=== PATIENT | male | born 1960 | race Caucasian/White ===

== ENCOUNTER 2021-07-12 17:23 | Emergency (ER) | payer MEDICAID ==
[~2021-07-12] VITALS: Ht 160 cm; Wt 80.0 kg
[2021-07-12] MEDS ORDERED: HYDROCODONE/ACETAMINOPHEN 5/325MG TABLET PO ONE (17:30)
[2021-07-12 18:26] LABS: BASOPHILS % 0.4 % (0.0-2.0); HEMATOCRIT. 47.8 % (42.0-52.0); LYMPHOCYTES % 11.1 % (20.0-50.0); MEAN CORPUSCULAR VOLUME 92.6 fL (80.0-94.0); MEAN PLATELET VOLUME 10.7 fl (7.4-10.4); MONOCYTES % 6.3 % (2.0-8.0); NEUTROPHILS % 81.2 % (40.0-76.0); PLATELET 146 x1000/uL (130-400); RED BLOOD CELL COUNT 5.16 mill/uL (4.7-6.1); RED CELL DISTRIBUTION WIDTH 13.7 % (11.6-14.6)
[2021-07-12 18:39] LABS: CHLORIDE 110 mEq/L (98-107)
[2021-07-12] MEDS ORDERED: HYDROCODONE/ACETAMINOPHEN 5/325MG TABLET PO NR (21:45)
[2021-07-12 22:09] VITALS: BP 137/75
[2021-07-12] MEDS ORDERED: TETANUS, DIPHTHERIA, PERTUSSIS VAC/PF 0.5ML (>10YR OLD) IM ONE (22:15)
[2021-07-12] MEDS ORDERED: IBUP-2029 MT (22:20)
== END 2021-07-12 23:26 | disposition home or self-care (01) ==
LOC: ER 17:23
DX: M79.18 Myalgia, other site (principal); S60.511A Abrasion of right hand, initial encounter; S80.02XA Contusion of left knee, initial encounter; V43.52XA Car driver injured in collision with other type car in traffic accident, initial encounter; Y93.89 Activity, other specified; Y92.410 Unspecified street and highway as the place of occurrence of the external cause; Z88.6 Allergy status to analgesic agent; Z96.649 Presence of unspecified artificial hip joint; Z98.890 Other specified postprocedural states
CPT/HCPCS: 36415; 71101; 73080; 73110; 73130; 73590; 80053; 85025; 90471; 90715; 93005; 99285